=== PATIENT | male | born 1960 | race Caucasian/White ===

== ENCOUNTER → 2022-05-15 01:13 | Outpatient (CLI) | payer OTHER, SELFPAY ==
--- NOTE | 2022-05-15 | DI.RAD_ITS ---
Exam(s) XR FOOT RT COMPLETE EXAM: XR FOOT RT COMPLETE CLINICAL HISTORY: HX GOUT Z87.39 TECHNIQUE: COMPARISON: No exams were available for comparison FINDINGS: Three views were obtained. There is marked soft tissue swelling adjacent to the 1st MTP joint with p rominent periarticular erosions of the bones. Findings are consistent with known diagnosis of gout. There is also some loss of the cartilaginous joint space of the 1st MTP joint consistent with superi mposed degenerative change. No other significant abnormality seen. IMPRESSION: RADIATION DOSE DELIVERED: Total DLP
--- NOTE | 2022-05-15 10:23 | DI.RAD_ITS ---
Exam(s) XR KNEE LT 3V AP,LAT,JANAE EXAM: XR KNEE LT 3V AP,LAT,JANAE CLINICAL HISTORY: ARTHRITIS OF KNEE M17.10 TECHNIQUE: COMPARISON: No exams were available for comparison FINDINGS: Three views were obtained. There are fixation screws of the distal femoral metaphysis and proximal t ibial metaphysis. There is an apparent old ACR reconstruction. There is marked loss of the cartilag inous joint space of the medial tibiofemoral joint and there is probably significant narrowing of the cartilaginous joint space of the patellofemoral joint as well. There are very prominent marginal os teophytes of all 3 joints of the knee. IMPRESSION: Severe DJD, most marked involving medial tibiofemoral joint. RADIATION DOSE DELIVERED: Total DLP
--- NOTE | 2022-05-15 10:23 | DI.RAD_ITS ---
Exam(s) XR HIP RT COMPLETE AP PELVIS EXAM: XR HIP RT COMPLETE AP PELVIS CLINICAL HISTORY: ARTHRITIS OF RT HIP M16.11 TECHNIQUE: COMPARISON: No exams were available for comparison FINDINGS: Five views were obtained. There is severe loss of the cartilaginous joint space of the right hip sup eriorly. There is marked subchondral sclerosis and cyst formation of the femoral head and acetabulum . There are very prominent marginal osteophytes of the femoral head and acetabulum. IMPRESSION: severe DJD right hip. Moderate degenerative changes of the left hip are noted as well. RADIATION DOSE DELIVERED: Total DLP
--- NOTE | 2022-05-15 10:23 | DI.RAD_ITS ---
Exam(s) XR KNEE RT 3V AP,LAT,JANAE EXAM: XR KNEE RT 3V AP,LAT,JANAE CLINICAL HISTORY: ARTHRITIS OF KNEE M17.10 TECHNIQUE: COMPARISON: CR XR KNEE LT 3V AP,LAT,JANAE from 05/15/2022 FINDINGS: Three views were obtained. There is mild narrowing of the medial tibiofemoral cartilaginous joint sp clemente. There is a superior patellar enthesophyte. No other significant bony or soft tissue abnormalit y seen. IMPRESSION: RADIATION DOSE DELIVERED: Total DLP
== END ==
PROVIDERS: PCP Internal Medicine; Visit Provider Internal Medicine
DX: M25.562 Pain in left knee (principal); M17.12 Unilateral primary osteoarthritis, left knee; M25.561 Pain in right knee; M17.11 Unilateral primary osteoarthritis, right knee; M25.551 Pain in right hip; M16.11 Unilateral primary osteoarthritis, right hip; M79.671 Pain in right foot; M10.9 Gout, unspecified; M79.89 Other specified soft tissue disorders; M19.071 Primary osteoarthritis, right ankle and foot
CPT/HCPCS: 73562; 73502; 73630

== ENCOUNTER 2023-01-03 10:12 | Outpatient (CLI) | payer OTHER, SELFPAY ==
--- NOTE | 2023-01-03 10:00 | DI.RAD_ITS ---
Exam(s) XR PELVIS AP EXAM: XR PELVIS AP CLINICAL HISTORY: PRE OP BILAT BRANDAN. TECHNIQUE: 2D digital imaging was performed.One images were obtained. COMPARISON: CR XR HIP RT COMPLETE AP PELVIS from 05/15/2022 FINDINGS: BONES: No acute fracture is present. No bony destructive lesion is seen. JOINTS: No dislocation present. There are marked degenerative changes again seen at the right hip wit h loss of the joint space and bony hypertrophy of the acetabulum and femoral head. Subchondral cysts are seen in the femoral head. There are [id number] degenerative changes of the left hip with joint space narrowing and bony hypertrophy present. SOFT TISSUE: Surgical clips are seen inferior to the pelvis which may represent prior vasectomy. IMPRESSION: Marked osteoarthritis of the right hip. [id number] osteoarthritis of the left hip. DATA REPOSITORY: RADIATION DOSE DELIVERED:
== END 2023-01-03 10:13 | disposition home or self-care (01) ==
LOC: DIORS 10:12
PROVIDERS: PCP Internal Medicine; Referring Provider Internal Medicine; Visit Provider Physician Assistant
DX: M16.0 Bilateral primary osteoarthritis of hip (principal)
CPT/HCPCS: 72170

== ENCOUNTER 2023-01-10 01:20 | Outpatient (CLI) | payer OTHER, SELFPAY ==
[2023-01-10 11:05] LABS: HGB 14.3 g/dL (13.5-17.5); MCH 29.2 pg (27.0-33.0); MCHC 33.3 % (32.0-36.0); MCV 88 fL (80-95); MPV 9.3 fL (8.0-11.0); Platelet Count 222 10^3/uL (130-400); RBC 4.89 10^6/uL (4.36-5.78); RDW 12.9 % (11.8-14.1); RDW-SD 42.1 fL; WBC 5.22 10^3/uL (4.4-10.8)
[2023-01-10 11:17] LABS: BUN 26 mg/dL (7-18); CREATININE 1.1 mg/dL (0.70-1.30); Calcium 8.8 mg/dL (8.5-10.1); Chloride 107 mmol/L (98-107); Estimated GFR 76.85 (mL/min/1.73m2); Glucose 178 mg/dL (74-106); Potassium 4.1 mmol/L (3.5-5.1); Sodium 141 mmol/L (136-145)
== END 2023-01-10 01:21 | disposition home or self-care (01) ==
LOC: LBO 01:22
PROVIDERS: PCP Internal Medicine; Visit Provider Student in an Organized Health Care Education/Training Program
DX: M25.551 Pain in right hip (principal); M25.552 Pain in left hip; M16.0 Bilateral primary osteoarthritis of hip; Z01.818 Encounter for other preprocedural examination; Z01.812 Encounter for preprocedural laboratory examination
CPT/HCPCS: 36415; 80048; 85027; 86850; 86900; 86901

== ENCOUNTER 2023-01-15 05:55 | Day surgery (SDC) | payer OTHER, SELFPAY ==
[2023-01-15] VITALS (11 sets, daily range): BP systolic 75–147; BP diastolic 40–87; PULSE 46–82; RESP 16–18; TEMP 36–36.8; O2SAT 95–100; BMI 30.4
[2023-01-15] MEDS: Acetaminophen 500 MG TAB 1000 MG PO (06:42)
[2023-01-15] MEDS: Lactated Ringers 1,000 ML 80 ML IV (06:43)
[2023-01-15] MEDS: Celecoxib 200 MG CAP 400 MG PO (06:43)
--- NOTE | 2023-01-15 07:01 | W.ANESPRE ---
General Info Date of Service Date Performed: 01/15/23 Height: 5 ft 9 in Weight: 93.5 kg Body Mass Index (BMI): 30.4 Surgical Procedure: Operation Date: 01/15/23 08:00 Proposed Procedure Side Surgeon p Hip Total Hip Anterior Bilateral, ACTIS Bilateral Oseas Larsen MD Meds Allergies and Home Medications Allergies Allergy/AdvReac Type Severity Reaction Status Date / Time No Known Allergies Allergy Unverified 01/14/23 11:56 Home Medication Medication Instructions Recorded fluoxetine 20 mg capsule 20 mg PO DAILY 05/27/16 lisinopril 20 mg tablet 20 mg PO DAILY 05/27/16 omeprazole 20 mg tablet,delayed 20 mg PO DAILY 05/27/16 release simvastatin 40 mg tablet 40 mg PO HS 05/27/16 cholecalciferol (vitamin D3) 50 50 mcg PO DAILY 01/03/23 mcg (2,000 unit) capsule indomethacin 50 mg capsule 50 mg PO TID PRN 01/03/23 lactobacillus combination no.9 4 4,000 mmu cells PO DAILY 01/03/23 billion cell capsule (Adult 50 Plus Probiotic) sildenafil 100 mg tablet (Viagra) 100 mg PO DAILY PRN 01/03/23 Current Visit Medications: Current Medications Generic Name Dose Route Start Last Admin Trade Name Freq PRN Reason Stop Dose Admin Acetaminophen 1,000 mg 01/15/23 06:00 01/15/23 06:42 Acetaminophen 500 Mg Tab PO 01/15/23 16:00 1,000 mg PREOP JEFF Administration Celecoxib 400 mg 01/15/23 06:00 01/15/23 06:43 Celecoxib 200 Mg Cap PO 01/15/23 16:00 400 mg PREOP JEFF Administration Tranexamic Acid 1,000 mg/ 60 mls @ 360 mls/hr 01/15/23 06:00 Sodium Chloride IV 01/15/23 16:00 PREOP JEFF Ringer's Solution 1,000 mls @ 80 mls/hr 01/15/23 06:00 01/15/23 06:43 IV 01/26/23 23:59 80 mls/hr INFUSION JEFF Administration Cefazolin Sodium/Dextrose 2 gm in 50 mls @ 100 mls/hr 01/15/23 06:00 Ancef Duplex IVPB 01/15/23 23:59 PREOP JEFF IV Miscellaneous Supplies 1 each 01/15/23 06:00 Iv Access IV 01/26/23 23:59 DIRECTED JEFF Sodium Chloride 0 ml 01/15/23 06:00 Normal Saline Flush 10 Ml Syr IV 01/26/23 23:59 PRN PRN Sodium Chloride 0 ml 01/15/23 06:00 Normal Saline 10 Ml Vial IJ 01/26/23 23:59 DIRECTED PRN Sterile Water 0 ml 01/15/23 06:00 Water,Injection,Sterile 10 Ml Vial IJ 01/26/23 23:59 DIRECTED PRN y PFSH Active Problems Active Problems: Problem Status Onset Code 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 Osteoarthritis of left hip M16.12 Osteoarthritis of right hip M16.11 Medical History Medical History Depression GERD (gastroesophageal reflux disease) Gout Hypertension Surgical History Surgical History History of reconstruction of anterior cruciate ligament tear Left ~35 years ago Tobacco Smoking/Tobacco Use Status: Never Alcohol Alcohol Intake: current Alcohol intake frequency: a few times a week Substance Use Substance use: Occasionally Substance use type: marijuana Vital Signs and Lab Results Vital Signs Most Recent Vital Signs in EMR: Most Recent Vital Signs Temp Pulse Resp BP Pulse Ox 36.8 C 82 16 147/87 H 97 01/15/23 06:12 01/15/23 06:12 01/15/23 06:12 01/15/23 06:12 01/15/23 06:12 Lab Results Blood Type / Crossmatch: Patient ABO/Rh O Positive 01/10/23 Antibody Screen NEGATIVE 01/10/23 Complete Blood Count: White Blood Count 5.22 10^3/uL (4.4-10.8) 01/10/23 10:53 Red Blood Count 4.89 10^6/uL (4.36-5.78) 01/10/23 10:53 Hemoglobin 14.3 g/dL (13.5-17.5) 01/10/23 10:53 Hematocrit 43.0 % (40.0-50.0) 01/10/23 10:53 Platelet Count 222 10^3/uL (130-400) 01/10/23 10:53 Complete Metabolic Panel: Sodium 141 mmol/L (136-145) 01/10/23 10:53 Potassium 4.1 mmol/L (3.5-5.1) 01/10/23 10:53 Chloride 107 mmol/L (98-107) 01/10/23 10:53 Carbon Dioxide 25.0 mmol/L (21.0-32.0) 01/10/23 10:53 BUN 26 mg/dL (7-18) H 01/10/23 10:53 Creatinine 1.1 mg/dL (0.70-1.30) 01/10/23 10:53 Est GFR (CKD-EPI 2020) 76.85 (mL/min/1.73m2) 01/10/23 10:53 Calcium 8.8 mg/dL (8.5-10.1) 01/10/23 10:53 Glucose 178 mg/dL (74-106) H 01/10/23 10:53 Liver Function Panel: No Data to Display Coagulation Panel: No Data to Display Cardiac Panel: No Data to Display Arterial Blood Gas: No Data to Display Venous Blood Gas: No Data to Display Pancreas Panel: No Data to Display Thyroid Panel: No Data to Display Infectious Disease: No Data to Display Blood Cultures: No Data to Display Toxicology Panel: No Data to Display Imaging and Studies Imaging and Studies Study information below may be from another EMR and interpreted by another provider. Please see original notes in EMR for more complete details. Stress Test Summary: Impressions: Normal study after maximal exercise. Summary: 1. Stress ECG conclusions: The stress ECG is negative. Wise treadmill score: 11. This score predicts a low risk of cardiac events. 2. Impressions: Normal study after maximal exercise. 06/04/16 Anesthesia Assessment and Plan Anesthesia History Personal History: No History of Anesthesia Complications Family History: No Family History of Anesthesia Complications Exercise Tolerance Exercise Tolerance: Metabolic Equivalents>4 Pertinent Negatives Pertinent Negatives: No Symptoms of GERD (well-controlled with meds), No Major Cardiovascular Symptoms or Complaints, No Major Pulmonary Symptoms or Complaints and No History of CVA/TIA Cardiac & Pulmonary Exam Cardiac Exam: Normal S1/S2 Heart Sounds Pulmonary Exam: Clear Bilateral Breath Sounds Implantable Cardiac Device Does patient have a Pacemaker or an ICD?: No Airway Exam Known Difficult Airway: No Mallampati Class: 3 Mouth Opening: Normal (> 3cm) Thyromental Distance: Greater than 3 cm Facial Hair: Full [place] Neck Range of Motion: Full ROM Neck Circumference: Normal Teeth Condition: Normal Dentition ASA Classification ASA Score: ASA 2 Emergency Case?: No NPO Status NPO Status: NPO Clears >2 hours, Solids >8 hours Anesthesia Plan Resuscitation Status: Full Code Anesthesia Technique: Spinal Anesthesia Airway Planned: Natural Airway Monitors Used: Standard Monitors
--- NOTE | 2023-01-15 07:26 | W.PM.DSUDISC ---
Date of service: 01/15/23 Time of Service: 07:26 Discharge Plan Disposition Patient Disposition: Home Condition: Good Discharge Details Reason For Visit: B/L THR Attending Provider: Oseas Larsen Primary Care Provider: Asif Parson Home Meds and New Rx's Prescriptions: New celecoxib 200 mg capsule 200 mg PO BID Qty: 60 0RF aspirin 81 mg tablet,delayed release (DR/EC) 81 mg PO BID Qty: 60 0RF acetaminophen 500 mg tablet 1,000 mg PO TID Qty: 90 3RF dexamethasone 4 mg tablet 4 mg PO DAILY Qty: 2 0RF oxycodone 5 mg tablet 5 mg PO Q4H MDD 6 tabs PRN (Reason: pain) Qty: 20 0RF Continued sildenafil [Viagra] 100 mg tablet 100 mg PO DAILY PRN Rx Instructions: administer 30 minutes to 4 hours before activity Adult 50 Plus Probiotic 4 billion cell capsule 4,000 mmu cells PO DAILY Rx Instructions: administer with a meal cholecalciferol (vitamin D3) 50 mcg (2,000 unit) capsule 50 mcg PO DAILY lisinopril 20 MG tablet 20 mg PO DAILY simvastatin 40 MG tablet 40 mg PO HS fluoxetine 20 MG capsule 20 mg PO DAILY omeprazole 20 MG tablet,delayed release (DR/EC) 20 mg PO DAILY Discontinued indomethacin 50 mg capsule 50 mg PO TID PRN Rx Instructions: administer with food or milk Discharge Instructions Additional Instructions: Total Hip Discharge Instructions Activity: The most important activity is to walk. You should try to take short walks a few times a day. You have no restrictions on movement or positioning, but do not try to force what you do. You will find some stiffness and weakness with hip flexion (lifting your knee). Do not try to strengthen this too early, continue to practice walking and stairs and this will come. - Outpatient physical therapy can be helpful to help return you to a normal gait and improve your flexibility and strength. This can start around 2 weeks. For some patients, it?s not necessary. Usually this is determined at the time of discharge or at the first post-operative visit. - You should wear the FIDEL hose on both legs for 2 weeks. Dressing: Keep the surgical dressing in place for at least one week. After the first week it may be removed and replace with light gauze and tape or nothing. It may get wet after 3 days but avoid soaking the dressing. If it gets wet, just lightly pat dry. It is important to always keep some gauze between skin folds, especially when you are sitting. Spend some time with the wound exposed when you are lying flat as the incision does wrinkle onto itself. Medications: - You should take Tylenol and an anti-inflammatory Celebrex as your primary pain control medications. If the Celebrex is too expensive or not covered, please call the office for another alternative (Advil/Ibuprofen or Naproxen/Aleve). - You have been prescribed a stronger pain medication Oxycodone for breakthrough pain, take as needed as prescribed. - You will also continue your stomach acid reduction agent omeprazole to help reduce stomach acid and reflux. - You have also been prescribed Decadron to help with post-operative nausea and pain. You will take this for two days starting tomorrow. - You will be taking Aspirin 81mg twice a day for DVT prevention unless instructed otherwise. - If you have constipation you should take Colace or Miralax (both [id number]). It takes most people 3-4 days to have a bowel movement. Follow-up: 2 weeks If you have any acute concerns or questions, please do not hesitate to contact the office at [phone]. You may contact Dr. Larsen with any questions after hours through the hospital at [phone] or on his cell phone at [phone]. Referrals: Oseas Larsen MD [ [facility] STAFF PHYSICIAN] - Equipment/Supplies: Walker Activity:: Activity as Tolerated Shower/Bathe:: 72 hours Diet:: As Tolerated
[2023-01-15] MEDS: ceFAZolin 2 GM/50 ML BAG IVPB (07:38)
[2023-01-15] MEDS: Tranexamic Acid 1,000 MG/10 ML VIAL 1000 MG (08:55)
--- NOTE | 2023-01-15 08:55 | DI.RAD_ITS ---
Exam(s) XR HIP RT IN OR EXAM: XR HIP RT IN OR CLINICAL HISTORY: total hip TECHNIQUE: 2D and realtime digital imaging was performed. CONTRAST MATERIAL: Refer to procedure report. COMPARISON: CR XR PELVIS AP from 01/03/2023 FINDINGS: Fluoroscopy was provided for Dr. Larsen during the performance of a right total hip replacement. Please refer to the procedure report for complete details. Ka,r=4.37 mGy IMPRESSION: RADIATION DOSE DELIVERED:
--- NOTE | 2023-01-15 10:05 | DI.RAD_ITS ---
Exam(s) XR HIP LT IN OR EXAM: XR HIP LT IN OR CLINICAL HISTORY: total hip TECHNIQUE: 2D and realtime digital imaging was performed. CONTRAST MATERIAL: Refer to procedure report. COMPARISON: CR XR PELVIS AP from 01/03/2023 FINDINGS: Fluoroscopy was provided for Dr. Larsen during the performance of a left total hip replacement. P lease refer to the procedure report for complete details. Ka,r=5.41 mGy IMPRESSION: RADIATION DOSE DELIVERED:
[2023-01-15] MEDS: ePHEDrine 25 MG/5 ML Syringe IVP (10:52)
--- NOTE | 2023-01-15 11:29 | ROE_ITS ---
Date of service: 01/15/23 Time of Service: 10:20 Operative Note Operative Note DATE OF PROCEDURE: 04/26/20 PRE-OP DIAGNOSIS: Bilateral Hip Osteoarthritis POST-OP DIAGNOSIS: same PROCEDURE: Bilateral Anterior Total Hip Arthroplasty with Intraoperative Navigation SURGEON: Oseas Larsen ANESTHESIA TYPE: Spinal Refer to Anesthesia Record ESTIMATED BLOOD LOSS: 600 PATHOLOGY: none sent COMPLICATIONS: None Patient was transported to: PACU Patient's condition: stable Implants: RIGHT: 1. Depuy Lytle Acetabular Component, 56mm 2. Depuy Acetabular Liner, [id number] 3. Depuy Actis Standard Femoral Stem, Size 6 4. Depuy Altrx Ceramic Femoral Head, Size 36+1.5mm LEFT: 1. Depuy Lytle Acetabular Component, 58mm 2. Depuy Acetabular Liner, [id number] 3. Depuy Actis Standard Femoral Stem, Size 6 4. Depuy Altrx Ceramic Femoral Head, Size 36+1.5mm Indications: I have seen Peter in clinic for symptoms of hip arthritis, confirmed with radiographic findings. He has exhausted nonoperative methods and was having significant limitations in daily function and desired better function and less pain. I discussed the technical details of a hip replacement. I explained the risks of the procedure to include, but not limited to, bleeding, infection, pain, stiffness, fracture, damage to nerves and vessels, damage to muscles and tendons, loosening, instability, leg length inequality, need for repeat procedure, blood clot and cardiopulmonary demise. Despite these risks, Peter elected to proceed. Findings: There was significant signs of arthritis throughout both hips. Large osteophytes are present in both but significantly so on the right side with notable deformity of the femoral head/neck junction obstructing normal anatomy view. Procedure Description: Peter was greeted in the preoperative holding area where the correct side was identified and marked. The consent was reviewed with the patient and signed. The history and physical was updated. All questions were answered. Peter was taken back to the operating room. A spinal anesthestic was then administered. The patient was placed into the supine position on the HANA table. Both feet were wrapped with Webrill cotton wrap along with Coban. RIGHT Side The feet were placed in specialized boots for the HANA table, well seated within the boot and secured. SCDs were applied. The patient was then slid down onto a peroneal post. A preoperative AP hip was obtained to serve as a reference for determining leg lengths. Prophylactic antibiotics in the form of Cefazolin were administered. 1g of Tranxemic Acid was given intravenously within 30 minutes of incision. The right leg was then prepped with Chloraprep and draped in a standard fashion. A second prep with Chloraprep was performed prior to placement of a shower-curtain type drape with Iodine impregnated skin protection. A timeout to confirm correct identity, side and site, procedure, allergies, anesthesia, and medical concerns was performed. An obliquely oriented incision was made starting lateral to the ASIS and running distal over the Tensor Fascia Judith (TFL) muscle belly toward the fibular head, approximately 10cm. The skin and soft tissue was dissected sharply, through Annia?s fascia, and to the fascia of the TFL. With the fascia and superior border of the IT band identified, the fascia was incised with a new knife just above any perforators from the IT band. The TFL muscle belly was bluntly dissected away from the fascia and moved laterally. The fat between TFL and rectus was identified to ensure the dissection was not within the TFL. Blunt dissection created space between abductors and the capsule and retractor was placed over the lateral femoral neck. The fibers of the rectus femoris tendon were identified and these were freed from the anterior capsule. A second cobra retractor was placed around the medial femoral neck. The TFL was further retracted laterally to show the deep fascia. Careful dissection through this layer identified three main crossing vessels of the lateral femoral circumflex. These were cauterized in multiple locations and then cut without any noticeable bleeding. The TFL was further released bluntly from the deep fascia to expose anterior hip capsule and fat The Vaughn orthopaedic retractor was then placed beneath the TFL and against sartorius and medial soft tissues to protect and retract the soft tissues. A T-capsulotomy was then performed starting at the superior lateral acetabulum and moving distally to the intertrochanteric ridge. These capsular flaps were tagged with a No. 1 Ethibond and elevated from within. Release of the capsule flaps was challenging given the deformity of the femoral head neck junction. There is large osteophytes throughout. A rongeur was utilized to remove these osteophytes to expose the normal anatomy of the proximal femur. A neck osteotomy was performed using an oscillating saw based on preoperative templates. This cut started in the shoulder and of the lateral neck and exited medially. The saw was at all times directed medially to avoid injury to the greater trochanter. Gentle traction was applied to the leg and the osteotomy opened. The femoral head was removed with a corkscrew, making sure to protect the TFL on its exit. This was measured on the back table to determing the starting reamer size. Portions of the rectus obscuring visualization were minimally elevated off the superior acetabulum. An anterior retractor was placed over the anterior wall between capsule and labrum and attached to the Gripper retraction system. A posterior retractor was placed similarly. This provided excellent visualization. The contents of the cotyloid fossa were removed with electrocautery and the labrum was removed with a knife. There was a notable floor osteophyte. There was significant chondromalacia of the superior acetabulum with a deep floor osteophyte. Acetabular reaming began with a 52mm reamer. This first reaming was directed anterior to posterior and medial to get down to the true floor. This was inspected and reamed until the true floor was reached. The anterior retractor was then released and entry and exit was provided by traction on the capsular flaps. I then reamed sequentially up to a 56mm reamer where good fit was obtained. The larger reamers were oriented based on anatomical reference of the anterior and lateral uriarte to ensure proper abduction and anteversion. Positioning and size was confirmed with the fluoroscopy. A 56mm Depuy Lytle acetabular component was selected. The acetabulum was reamed around the periphery with the selected acetabular size to prevent a rim fit. The deep tissues were irrigated. The acetabular component was then impacted in a position of about 40degrees of abduction and 15-20 degrees of anteversion, using the patient?s anatomy as the ultimate landmark. Fluoroscopy was used to confirm this. There was excellent bessemer converter operator of the acetabular component and the inserting handle was removed. The acetabular liner, Depuy [id number] polyethylene liner, was inserted and lined up with the tines of the acetabular component. There was no soft tissue interposition. The liner was then impacted into position and confirmed to be well-seated. A portion of the reggie-articular cocktail was then injected around the acetabulum into the capsule and periosteum. This cocktail consisted of 123mg of Ropivacaine, 0.25mg of Epinephrine, 0.04mg of Clonidine, and 15mg of Ketorolac, diluted to 50cc. Traction was released from the femur. The leg was rotated to 120 degrees. Any remaining medial capsule was released until the lesser trochanter was easily palpable. A Beal retractor was placed medially. The lateral capsule was further released into the shoulder to allow access to the greater trochanter. A Beal retractor was placed over the greater trochanter which allowed the trochanter to flip in front of the capsule for excellent exposure. The leg was brought down into maximal extension and 20 degrees of adduction while ensuring there was no impingement on the acetabulum. Any remnant capsule within the trochanter was released. Piriformis and obturator externis were identified and protected. There was excellent access to the proximal femur. The lateral neck remnant was removed with a rongeur. A blunt canal probe was used to identify the canal and trajectory for later broaching. A box osteotome initiated the broach course. A small curved rasp and a curved curette were used to work laterally. Broaching then began with a starter Actis broach. This was inserted manually around the trochanter and into the canal before mallet blows. The broach was seated to the neck cut level based on the neck cut and the preoperative template. Sequential broaching was continued with the RotaPostse pneumatic broaching device until a tight fit was obtained with good rotational control of the femur. A trial standard neck was inserted along with a +5 trial head. The leg was brought out of extension and adduction and then reduced with traction and internal rotation. The leg was stable anteriorly in a position of 30 degrees of extension and 90 degrees of external rotation. Fluoroscopy was used to ensure there was no fracture and the stem was seated well. Leg lengths were checked with an AP pelvis and pelvic reference points. [employer] navigation system was used to confirm appropriate positioning and leg length and offset. Once content with the desired offset and leg lengths, the leg was brought back into extension, external rotation and adduction. A large posterior osteophyte was removed from the acetabular surface. The periosteum and surrounding tissue was injected with remaining portion of the reggie-articular cocktail. The proximal femur was irrigated as well as the deep tissues. The NeoGuide Systemsis standard stem, size 6, was then manually inserted into the proximal femur making sure to control rotation. It was then malleted into position with light blows, giving breaks to allow bone expansion and decrease risk of fracture. The selected Depuy Altrx Ceramic Head, size 36+1.5mm, was then placed onto the clean and dry trunnion and secured with impaction onto the tapered fit. The leg was brought back out of extension and adduction and reduced with traction and internal rotation. Stability was confirmed with no shuck at 90 degrees of external rotation and 30 degrees of extension. No impingement through range of motion arc. Final x-ray images were obtained with fluoroscopy to confirm adequate positioning and no intraoperative fracture. The deep tissues were thoroughly irrigated with Surgiphor betadine solution. The second dose of TXA 1g was administered intravenously. The capsule was then reapproximated with the previously placed Ethibond sutures and #1 Vicryl. The TFL fascia was finally closed with a No. 2 Stratafix, barbed suture. Deep t issues were then reapproximated with 0 Vicryl and a running 2-0 Vicryl. The skin was closed with a running 4-0 Monocryl in a subcuticular fashion. This was reinforced with skin glue. A Mepilex silver dressing was applied. LEFT Side Keeping the back table sterile, the drapes were removed, light handles changed, and fluoroscopy switched rooms sides. Once again, a AP hip was obtained to serve as a reference for determining leg lengths. The left leg was then prepped with Chloraprep and draped in a standard fashion. A second prep with Chloraprep was performed prior to placement of a shower-curtain type drape with Iodine impregnated skin protection. A timeout was once again performed to ensure that there were no issues to proceed. An obliquely oriented incision was made starting lateral to the ASIS and running distal over the Tensor Fascia Judith (TFL) muscle belly toward the fibular head, approximately 10cm. The skin and soft tissue was dissected sharply, through Annia?s fascia, and to the fascia of the TFL. With the fascia and superior border of the IT band identified, the fascia was incised with a new knife just above any perforators from the IT band. The TFL muscle belly was bluntly dissected away from the fascia and moved laterally. The fat between TFL and rectus was identified to ensure the dissection was not within the TFL. Blunt dissection created space between abductors and the capsule and retractor was placed over the lateral femoral neck. The fibers of the rectus femoris tendon were identified and these were freed from the anterior capsule. A second cobra retractor was placed around the medial femoral neck. The TFL was further retracted laterally to show the deep fascia. Careful dissection through this layer identified three main crossing vessels of the lateral femoral circumflex. These were cauterized in multiple locations and then cut without any noticeable bleeding. The TFL was further released bluntly from the deep fascia to expose anterior hip capsule and fat The Vaughn orthopaedic retractor was then placed beneath the TFL and against sartorius and medial soft tissues to protect and retract the soft tissues. A T-capsulotomy was then performed starting at the superior lateral acetabulum and moving distally to the intertrochanteric ridge. These capsular flaps were tagged with a No. 1 Ethibond and elevated from within. The capsular flaps were released to the shoulder of the lateral neck and to the lesser trochanter to give excellent visualization of the proximal femur. A neck osteotomy was performed using an oscillating saw based on preoperative templates. This cut started in the shoulder and of the lateral neck and exited medially. The saw was at all times directed medially to avoid injury to the greater trochanter. Gentle traction was applied to the leg and the osteotomy opened. The femoral head was removed with a corkscrew, making sure to protect the TFL on its exit. This was measured on the back table to determing the starting reamer size. Portions of the rectus obscuring visualization were minimally elevated off the superior acetabulum. An anterior retractor was placed over the anterior wall between capsule and labrum and attached to the Gripper retraction system. A posterior retractor was placed similarly. This provided excellent visualization. The contents of the cotyloid fossa were removed with electrocautery and the labrum was removed with a knife. There was a notable floor osteophyte. There was significant chondromalacia of the superior acetabulum. Acetabular reaming began with a 54mm reamer. This first reaming was directed anterior to posterior and medial to get down to the true floor. This was inspected and reamed until the true floor was reached. The anterior retractor was then released and entry and exit was provided by traction on the capsular flaps. I then reamed sequentially up to a 58mm reamer where good fit was obtained. The larger reamers were oriented based on anatomical reference of the anterior and lateral uriarte to ensure proper abduction and anteversion. Positioning and size was confirmed with the fluoroscopy. A 58mm Depuy Lytle acetabular component was selected. The acetabulum was reamed around the periphery with the selected acetabular size to prevent a rim fit. The deep tissues were irrigated. The acetabular component was then impacted in a position of about 40 degrees of abduction and 15-20 degrees of anteversion, using the patient?s anatomy as the ultimate landmark. Fluoroscopy was used during this. There was excellent bessemer converter operator of the acetabular component and the inserting handle was removed. On secondary evaluation, it did appear that the acetabular component was more flat, approximately 35 degrees. However, it was well seated and thus left as it is in a slightly more horizontal position. The acetabular liner, Depuy [id number] polyethylene liner, was inserted and lined up with the tines of the acetabular component. There was no soft tissue interposition. The liner was then impacted into position and confirmed to be well-seated. A portion of the reggie-articular cocktail was then injected around the acetabulum into the capsule and periosteum. This cocktail consisted of 123mg of Ropivacaine, 0.25mg of Epinephrine, 0.04mg of Clonidine, and 15mg of Ketorolac, diluted to 50cc. Traction was released from the femur. The leg was rotated to 120 degrees. Any remaining medial capsule was released until the lesser trochanter was easily palpable. A Beal retractor was placed medially. The lateral capsule was further released into the shoulder to allow access to the greater trochanter. A Beal retractor was placed over the greater trochanter which allowed the trochanter to flip in front of the capsule for excellent exposure. The leg was brought down into maximal extension and 20 degrees of adduction while ensuring there was no impingement on the acetabulum. Any remnant capsule within the trochanter was released. Piriformis and obturator externis were identified and protected. There was excellent access to the proximal femur. The lateral neck remnant was removed with a rongeur. A blunt canal probe was used to identify the canal and trajectory for later broaching. A box osteotome initiated the broach course. A small curved rasp and a curved curette were used to work laterally. Broaching then began with a starter Actis broach. This was inserted manually around the trochanter and into the canal before mallet blows. The broach was seated to the neck cut level based on the neck cut and the preoperative template. Sequential broaching was continued with the RotaPostse pneumatic broaching device until a tight fit was obtained with good rotational control of the femur. A trial standard neck was inserted along with a +1.5 trial head. The leg was brought out of extension and adduction and then reduced with traction and internal rotation. The leg was stable anteriorly in a position of 30 degrees of extension and 90 degrees of external rotation. Fluoroscopy was used to ensure there was no fracture and the stem was seated well. Leg lengths were checked with an AP pelvis and pelvic reference points. [employer] navigation system was used to confirm appropriate positioning and leg length and offset. Once content with the desired offset and leg lengths, the leg was brought back into extension, external rotation and adduction. The periosteum and surrounding tissue was injected with remaining portion of the reggie-articular cocktail. The proximal femur was irrigated as well as the deep tissues. The Depuy Actis standard collared stem, size 6, was then manually inserted into the proximal femur making sure to control rotation. It was then malleted into position with light blows, giving breaks to allow bone expansion and decrease risk of fracture. The selected Depuy Altrx Ceramic Head, size 36+1.5mm, was then placed onto the clean and dry trunnion and secured with impaction onto the tapered fit. The leg was brought back out of extension and adduction and reduced with traction and internal rotation. Stability was confirmed with no shuck at 90 degrees of external rotation and 30 degrees of extension. No impingement through range of motion arc. Final x-ray images were obtained with fluoroscopy to confirm adequate positioning and no intraoperative fracture. The deep tissues were thoroughly irrigated with Surgiphor betadine solution. The capsule was then reapproximated with the previously placed Ethibond sutures and #1 Vicryl. The TFL fascia was finally closed with a No. 2 Stratafix, barbed suture. Deep tissues were then reapproximated with 0 Vicryl and a running 2-0 Vicryl. The skin was closed with a running 4-0 Monocryl in a subcuticular fashion. This was reinforced with skin glue. A Mepilex silver dressing was applied. At the end of the case, all counts were correct. Peter was transferred to the hospital bed without difficulty and suffering no apparent complication. Peter has a good prognosis. Physical therapy will start today and without restrictions, weight-bearing as tolerated. Aspirin 81mg BID will be used for DVT prophylaxis.
--- NOTE | 2023-01-15 12:29 | W.ANESPOSTOP ---
Postoperative Evaluation Date, Time and Location Date Performed: 01/15/23 Time Performed: 12:31 Patient Location: Day Surgery Unit Vital Signs Most Recent Imported Vital Signs: Most Recent Vital Signs Temp Pulse Resp BP Pulse Ox 36.4 C L 66 16 127/76 99 01/15/23 12:10 01/15/23 12:10 01/15/23 12:10 01/15/23 12:10 01/15/23 12:10 Pain Score Most Recent Pain Score: Most Recent Pain Score Pain Level 0 01/15/23 12:10 Assessment Mental Status: Awake (Alert & Oriented to Patient Baseline) Airway and Respiratory Function: Patent airway with normal (patient baseline) respiratory exam Cardiovascular Function: Hemodynamically Stable Hydration Status: Adequately Hydrated Nausea & Vomiting: No Nausea or Vomiting Pain: Pt. Denies Any Pain Peripheral Nerve Block: Patient did not receive a nerve block
--- NOTE | 2023-01-15 12:39 | PT.INIE ---
PT Notes Visit Reasons: B/L THR Physical Therapy Day Surgery Initial Evaluation Date: 01/15/2023 Referring Doctor: TAVO Summers PT Orders: PT CONSULT: S/P Ortho Surgery Precautions: WBAT on BLE with AD. Patient Profile/Admitting Diagnosis: Peter is a 62-year-old male with degenerative joint disease of both hips and is status post bilateral anterior total hip arthroplasty on postoperative day 0. PMHX: Medical History?(Updated 01/03/23 @ 10:46 by Graciela Hudson) Depression GERD (gastroesophageal reflux disease) Gout Hypertension Surgical History?(Updated 01/03/23 @ 10:45 by Graciela Hudson) History of reconstruction of anterior cruciate ligament tear Left ~35 years ago Social History/Home Situation: Lives with in a private home with 12 steps to enter with rails on both sides. Independent with all aspects of ADLs prior to surgery but has had worsening difficulty due to osteoarthritis in B hips. Equipment Owned/DME: FWW Subjective: Reports minimal to moderate pain in both hips with the left more affected than the right with movement and weight bearing. Denies headache and chest pain. Reported mild lightheadedness that decreased at end of ambulation activity. Objective: General Observation: Mepilex Ag over surgical incision. TEDs to B legs. In NAD. Mental Status: Alert and oriented x4 Pain: 4?5/10 in bilateral hips with movement and weight ROM: Right Lower Extremity: Hip flexion WFL. Hip abduction WFL. Knee flexion WFL. Ankle dorsiflexion WFL. Ankle plantarflexion WFL. Left Lower Extremity: Hip flexion WFL. Hip abduction WFL. Knee flexion WFL. Ankle dorsiflexion WFL. Ankle plantarflexion WFL. Strength: Right Lower Extremity: Hip flexors 5/5. Hip abductors 5/5. Knee flexors 5/5. Knee extensors 5/5. Ankle dorsiflexors 5/5. Ankle plantarflexors 5/5. Left Lower Extremity:Hip flexors 5/5. Hip abductors 5/5. Knee flexors 5/5. Knee extensors 5/5. Ankle dorsiflexors 5/5. Ankle plantarflexors 5/5. Sensation: Intact as tompain and light touch in the Bed Mobility/Transfers: Supine to sit stand by assist Sit to stand guard assist with Stand to sit stand by assist Bed to chair stand by assist Gait: Tolerated 150 feet using front wheeled walker with standby assist, step through gait pattern. No LOB. NO SOB. Mild lightheadedness resolved with ambulation activity. Balance: Static Sitting: Normal Dynamic Sitting: Normal Static Standing: Fair Dynamic Standing: Fair Special Tests: Mobility Limitations Standardized Measure [facility] AM-PAC 6 clicks Basic Mobility Inpatient Short Form: Raw Score: 24 CMS Score: 0% deficit Informed Consent/Education: Patient instructed in purpose of PT consult. Packet containing BRANDAN exercise protocol has been given to patient. Education and training on initial set of exercises that can be done at home have been completed with patient. NEURO RE-ED: Facilitated muscle reactivation and recruitment of B LE S/P R BRANDAN to ensure safe performance of bed mobility, transfers, and ambulation task performance using FWW. Instructed patient with correct performance the following HEP: Exercises - Supine Gluteal Sets - 1 x daily - 7 x weekly - 1 sets - 10 reps - 5 hold - Supine Ankle Pumps - 1 x daily - 7 x weekly - 1 sets - 10 reps - 5 hold - Supine Heel Slides - 1 x daily - 7 x weekly - 1 sets - 10 reps - 5 hold - Seated March - 1 x daily - 7 x weekly - 1 sets - 10 reps - 5 hold - Seated Long Arc Quad - 1 x daily - 7 x weekly - 1 sets - 10 reps - 5 hold Access Code: [email or web address] URL: [email or web address] Date: 01/15/2023 Prepared by: Sylvia Pereyra Assessment: Patient requires the use of a front wheeled walker to maximize independence and reduce fall risk. Patient presents with clinical signs and symptoms consistent with current/admitting diagnoses that have resulted to mobility limitations, gait instability, generalized weakness, and impairment of motor control as demonstrated by the following impairment level findings: 1. Decreased strength to B hip major muscle groups 2. Impaired standing balance Impairments are contributing to the following functional limitations: 1. Inability to safely ambulate without assistive device 2. Increase completion time for mobility ADL performance 3. Increased fall risk Patient is assessed as a [id number] moderate complexity based on the following: History: 62-year-old male with impairment level findings, functional limitations, and past medical history as indicated above Examination: Demonstrable impairment in strength, balance, and mobility level with underlying impairments and functional limitations as documented above Presentation: Evolving Decision Makin moderate complexity Goals: N/A. PT evaluation and 1-2 treatment sessions only for functional mobility training using recommended AD and for HEP instruction. Plan of Care/Treatment Plan: N/A. PT evaluation and 1-2 treatment session only for functional mobility training using recommended AD and for HEP instruction. DISCHARGE RECOMMENDATIONS: Home when medically cleared by orthopedic surgeon. Recommend outpatient PT services in order to optimize functional mobility outcomes and facilitate return to independent community ambulation without an assistive device. TREATMENT CODE/TIME: 9716 2 x 20 minutes, 9753 0 x 21 minutes beginning at 12:45 PM. Thank you for the opportunity to participate in the care of this patient. Sylvia Pereyra PT, DPT, CLT [facility] [place], [place]
== END 2023-01-15 13:52 | disposition home or self-care (01) ==
PROVIDERS: PCP Internal Medicine; Visit Provider Student in an Organized Health Care Education/Training Program
PROC: 0SR90JZ Replacement of Right Hip Joint with Synthetic Substitute, Open Approach (ICD-10-PCS; CPT 27130; principal; 2023-01-15 07:30)
DX: M16.0 Bilateral primary osteoarthritis of hip (principal)
CPT/HCPCS: 27130; 20985; 97112; 97162; 73501; J0690; J1100; J2250; J2405

== ENCOUNTER 2023-01-31 11:01 | Outpatient (CLI) | payer OTHER, SELFPAY ==
--- NOTE | 2023-01-31 10:15 | DI.RAD_ITS ---
Exam(s) XR HIP PELVIS ADULT BL EXAM: XR HIP PELVIS ADULT BL CLINICAL HISTORY: 1ST POST OP BILAT BRANDAN. TECHNIQUE: 2D digital imaging was performed. COMPARISON: CR XR PELVIS AP from 01/03/2023 FINDINGS: 3 views There is satisfactory appearance-alignment of the components of bilateral hip prostheses which for pl aced on 01/15/2023. No fractures nor loosening evident. IMPRESSION: Stable satisfactory appearance of the bilateral recently placed hip prostheses. DATA REPOSITORY: RADIATION DOSE DELIVERED:
== END 2023-01-31 11:02 | disposition home or self-care (01) ==
LOC: DIORS 11:01
PROVIDERS: PCP Internal Medicine; Referring Provider Internal Medicine; Visit Provider Student in an Organized Health Care Education/Training Program
DX: Z96.643 Presence of artificial hip joint, bilateral (principal); Z48.89 Encounter for other specified surgical aftercare
CPT/HCPCS: 73521

== ENCOUNTER 2023-04-11 11:52 | Outpatient (CLI) | payer OTHER, SELFPAY ==
--- NOTE | 2023-04-11 11:00 | DI.RAD_ITS ---
Exam(s) XR STANDING ALIGNMENT EXAM: XR STANDING ALIGNMENT CLINICAL HISTORY: left knee DJD. TECHNIQUE: 2D digital imaging was performed. COMPARISON: CR XR HIP PELVIS ADULT BL from 01/31/2023 FINDINGS: 3 views There are bilateral hip prostheses again noted which appears satisfactory. There are screws in the distal diaphysis of the left femur and metaphysis of the proximal left tibia. There is [id number] narrowing of the medial compartment of the left knee. Preserved height of th e lateral compartment. In the opposite-right knee there is mild narrowing of the medial compartment and there is a 4 x 3 mil limeter osteophytic density off the inner aspect of this compartment in the region of the MCL. The l ateral compartment the right knee appears unremarkable. Both ankles appear unremarkable. Talar dome is unremarkable. No osseous lesions. IMPRESSION: Advanced narrowing of the medial compartment of the left knee. Lesser narrowing of the medial compar tment of the right knee. Osteophytic density noted at the medial aspect of the right knee, as descri bed above. Bilateral hip prostheses again noted. DATA REPOSITORY: RADIATION DOSE DELIVERED:
--- NOTE | 2023-04-11 11:00 | DI.RAD_ITS ---
Exam(s) XR KNEE LT 1V EXAM: XR KNEE LT 1V CLINICAL HISTORY: left knee DJD. TECHNIQUE: 2D digital imaging was performed. COMPARISON: CR XR KNEE RT 3V AP,LAT,JANAE from 05/15/2022 FINDINGS: Single lateral view. There is [id number] narrowing of the medial compartment. Single screw is noted in the distal femor al diaphysis and additional screw noted in the proximal tibial metaphysis. Moderate degenerative changes evident in the patellofemoral compartment. Posteriorly there is a calc ific density measuring 2 x 1.5 cm. Probably loose body in Cuellar's cyst. IMPRESSION: Advanced narrowing of the medial compartment. Other findings as above. DATA REPOSITORY: RADIATION DOSE DELIVERED:
== END 2023-04-11 11:53 | disposition home or self-care (01) ==
LOC: DIORS 11:54
PROVIDERS: PCP Internal Medicine; Visit Provider Physician Assistant
DX: M12.562 Traumatic arthropathy, left knee (principal); Z47.1 Aftercare following joint replacement surgery
CPT/HCPCS: 73560; 77073

== ENCOUNTER 2023-05-01 03:55 | Outpatient (CLI) | payer OTHER, SELFPAY ==
[2023-05-01 09:26] LABS: HCT 45.4 % (40.0-50.0); HGB 15.1 g/dL (13.5-17.5); MCH 29.2 pg (27.0-33.0); MCHC 33.3 % (32.0-36.0); MCV 88 fL (80-95); MPV 9.5 fL (8.0-11.0); Platelet Count 234 10^3/uL (130-400); RBC 5.17 10^6/uL (4.36-5.78); RDW 12.7 % (11.8-14.1); RDW-SD 40.9 fL; WBC 6.36 10^3/uL (4.4-10.8)
[2023-05-01 09:33] LABS: Anion Gap 9.9 mmol/L (3-11); BUN 21 mg/dL (7-18); CO2 27.1 mmol/L (21.0-32.0); Calcium 9.1 mg/dL (8.5-10.1); Chloride 103 mmol/L (98-107); Estimated GFR 86.16 (mL/min/1.73m2); Glucose 112 mg/dL (74-106); Potassium 4.2 mmol/L (3.5-5.1); Sodium 140 mmol/L (136-145)
== END 2023-05-01 03:56 | disposition home or self-care (01) ==
LOC: LBO 03:55
PROVIDERS: PCP Internal Medicine; Visit Provider Student in an Organized Health Care Education/Training Program
DX: M25.562 Pain in left knee (principal); M12.562 Traumatic arthropathy, left knee; Z01.818 Encounter for other preprocedural examination; Z01.812 Encounter for preprocedural laboratory examination
CPT/HCPCS: 36415; 80048; 85027

== ENCOUNTER 2023-05-06 07:15 | Day surgery (SDC) | payer OTHER, SELFPAY ==
[2023-05-06] VITALS (12 sets, daily range): BP systolic 126–167; BP diastolic 55–95; PULSE 65–97; RESP 14–19; TEMP 36.3–36.7; O2SAT 95–98; BMI 29.5
--- NOTE | 2023-05-06 06:26 | W.ANESPRE ---
General Info Date of Service Date Performed: 05/06/23 Height: 5 ft 9 in Weight: 90.718 kg Body Mass Index (BMI): 29.5 Surgical Procedure: Operation Date: 05/06/23 09:25 Proposed Procedure Side Surgeon p Knee Total Arthroplasty w/OrthAlign, cementless CR Left Oseas Larsen MD Meds Allergies and Home Medications Allergies Allergy/AdvReac Type Severity Reaction Status Date / Time No Known Allergies Allergy Unverified 05/06/23 07:37 Home Medication Medication Instructions Recorded fluoxetine 20 mg capsule 20 mg PO DAILY 05/27/16 lisinopril 20 mg tablet 20 mg PO DAILY 05/27/16 omeprazole 20 mg tablet,delayed 20 mg PO DAILY 05/27/16 release simvastatin 40 mg tablet 40 mg PO DAILY 05/27/16 cholecalciferol (vitamin D3) 50 50 mcg PO DAILY 01/03/23 mcg (2,000 unit) capsule lactobacillus combination no.9 4 4,000 mmu cells PO DAILY 01/03/23 billion cell capsule (Adult 50 Plus Probiotic) sildenafil 100 mg tablet (Viagra) 100 mg PO DAILY PRN 01/03/23 celecoxib 200 mg capsule 200 mg PO DAILY #60 caps 02/28/23 acetaminophen 500 mg tablet 1,000 mg PO TID PRN 05/05/23 Current Visit Medications: Current Medications Generic Name Dose Route Start Last Admin Trade Name Freq PRN Reason Stop Dose Admin Acetaminophen 1,000 mg 05/06/23 06:00 Acetaminophen 500 Mg Tab PO 05/06/23 16:00 PREOP JEFF Celecoxib 400 mg 05/06/23 06:00 Celecoxib 200 Mg Cap PO 05/06/23 16:00 PREOP JEFF Gabapentin 300 mg 05/06/23 06:00 Gabapentin 300 Mg Cap PO 05/06/23 16:00 PREOP JEFF Tranexamic Acid 1,000 mg/ 60 mls @ 360 mls/hr 05/06/23 06:00 Sodium Chloride IVPB 05/06/23 16:00 PREOP JEFF Ringer's Solution 1,000 mls @ 80 mls/hr 05/06/23 06:00 IV 06/04/23 23:59 INFUSION JEFF Cefazolin Sodium/Dextrose 2 gm in 50 mls @ 100 mls/hr 05/06/23 06:00 Ancef Duplex IVPB 05/06/23 16:00 PREOP JEFF IV Miscellaneous Supplies 1 each 05/06/23 06:00 Iv Access IV 06/04/23 23:59 DIRECTED JEFF Sodium Chloride 0 ml 05/06/23 06:00 Normal Saline Flush 10 Ml Syr IV 06/04/23 23:59 PRN PRN Sodium Chloride 0 ml 05/06/23 06:00 Normal Saline 10 Ml Vial IJ 06/04/23 23:59 DIRECTED PRN Sterile Water 0 ml 05/06/23 06:00 Water,Injection,Sterile 10 Ml Vial IJ 06/04/23 23:59 DIRECTED PRN PFSH Active Problems Active Problems: Problem Status Onset Code 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 History of bilateral hip replacements 01/15/23 Z96.643 Medical History Medical History Depression GERD (gastroesophageal reflux disease) Gout Hypertension Surgical History Surgical History History of reconstruction of anterior cruciate ligament tear Left ~35 years ago Hx of total hip arthroplasty b/l 12/2022 Tobacco Smoking/Tobacco Use Status: Never Alcohol Alcohol Intake: current Alcohol intake frequency: a few times a week Alcohol type: beer Substance Use Substance use: Occasionally Substance use type: marijuana Details: last use 05/03 Vital Signs and Lab Results Vital Signs Most Recent Vital Signs in EMR: Temp Pulse Resp BP Pulse Ox 36.7 C 76 16 150/91 H 97 05/06/23 07:27 05/06/23 07:27 05/06/23 07:27 05/06/23 07:27 05/06/23 07:27 Lab Results Blood Type / Crossmatch: No Data to Display Complete Blood Count: White Blood Count 6.36 10^3/uL (4.4-10.8) 05/01/23 08:55 Red Blood Count 5.17 10^6/uL (4.36-5.78) 05/01/23 08:55 Hemoglobin 15.1 g/dL (13.5-17.5) 05/01/23 08:55 Hematocrit 45.4 % (40.0-50.0) 05/01/23 08:55 Platelet Count 234 10^3/uL (130-400) 05/01/23 08:55 Complete Metabolic Panel: Sodium 140 mmol/L (136-145) 05/01/23 08:55 Potassium 4.2 mmol/L (3.5-5.1) 05/01/23 08:55 Chloride 103 mmol/L (98-107) 05/01/23 08:55 Carbon Dioxide 27.1 mmol/L (21.0-32.0) 05/01/23 08:55 BUN 21 mg/dL (7-18) H 05/01/23 08:55 Creatinine 1.0 mg/dL (0.70-1.30) 05/01/23 08:55 Est GFR (CKD-EPI 2020) 86.16 (mL/min/1.73m2) 05/01/23 08:55 Calcium 9.1 mg/dL (8.5-10.1) 05/01/23 08:55 Glucose 112 mg/dL (74-106) H 05/01/23 08:55 Liver Function Panel: No Data to Display Coagulation Panel: No Data to Display Cardiac Panel: No Data to Display Arterial Blood Gas: No Data to Display Venous Blood Gas: No Data to Display Pancreas Panel: No Data to Display Thyroid Panel: No Data to Display Infectious Disease: No Data to Display Blood Cultures: No Data to Display Toxicology Panel: No Data to Display Imaging and Studies Imaging and Studies Study information below may be from another EMR and interpreted by another provider. Please see original notes in EMR for more complete details. Stress Test Summary: Impressions: Normal study after maximal exercise. Summary: 1. Stress ECG conclusions: The stress ECG is negative. Wise treadmill score: 11. This score predicts a low risk of cardiac events. 2. Impressions: Normal study after maximal exercise. 06/04/16 Anesthesia Assessment and Plan Anesthesia History Personal History: No History of Anesthesia Complications Family History: No Family History of Anesthesia Complications Exercise Tolerance Exercise Tolerance: Metabolic Equivalents>4 Cardiac & Pulmonary Exam Cardiac Exam: Normal S1/S2 Heart Sounds Pulmonary Exam: Clear Bilateral Breath Sounds Implantable Cardiac Device Does patient have a Pacemaker or an ICD?: No Airway Exam Known Difficult Airway: No Mallampati Class: 3 Mouth Opening: Normal (> 3cm) Thyromental Distance: Greater than 3 cm Neck Range of Motion: Full ROM Neck Circumference: Normal Teeth Condition: Normal Dentition ASA Classification ASA Score: ASA 2 Emergency Case?: No NPO Status NPO Status: NPO Clears >2 hours, Solids >8 hours Anesthesia Plan Resuscitation Status: Full Code Anesthesia Technique: General Anesthesia Airway Planned: Natural Airway Monitors Used: Standard Monitors Preoperative Comments:: 62 yo male for TKA. denies health history change since BRANDAN. Sig PMHx: GERD, depression, HTN, never smoker, occ etoh/cannabis. Previous Anes: - bTHA, spinal 1.5 mL heavy bup, prop/dexmed sedation, natural airway.
[2023-05-06] MEDS: Acetaminophen 500 MG TAB 1000 MG PO (07:50)
[2023-05-06] MEDS: Gabapentin 300 MG CAP PO (07:51)
[2023-05-06] MEDS: Celecoxib 200 MG CAP 400 MG PO (07:51)
[2023-05-06] MEDS: Lactated Ringers 1,000 ML 80 ML IV (08:00)
--- NOTE | 2023-05-06 08:31 | W.ANESNERVE ---
Nerve Block Single Injection Procedure Date and Time Date Performed: 05/06/23 Procedure Start: 08:25 Location Where Procedure Performed Procedure Location: Day Surgery Unit Reason Performed: Postoperative Analgesia Requesting Provider: Oseas Larsen Timeout Performed Timeout Performed: Yes Monitoring Used ECG, Blood Pressure and SpO2 Sterility Sterility: Hand Hygiene, Surgical Cap, Surgical Mask, Sterile Gloves and Chlorhexidine Sedation Given During Procedure Sedation Given (Indicate Dose Given): Versed IV Dose:: 2 mg Patient Mental Status Patient Mental Status: Sedate with meaningful communication Nerve Block 1st Nerve Block: Laterality: Left Block Type: Adductor Canal Ultrasound Image Saved?: Yes Needle / Catheter Used: 100mm SonoPlex II Local Anesthetic Bolus (Indicate Dose Given): Lidocaine used for local infiltration of skin, Injected in 3-5ml increments after negative blood aspiration and Bupivacaine 0.375% Dose:: 10 mL Additives (Indicate Dose Given): Precedex Dose:: 40 mcg Ultrasound: Sterile probe cover and gel used Nerve Stimulator: Supplement to Ultrasound use and No twitch or parasthesia noted < 0.5 mA Paresthesia: None Procedure Tolerated: No Complications Procedure Outcome: Successful Performed By: Colt Hsieh
[2023-05-06] MEDS: ceFAZolin 2 GM/50 ML BAG IVPB (08:40)
--- NOTE | 2023-05-06 11:05 | W.ANESPOSTOP ---
Postoperative Evaluation Date, Time and Location Date Performed: 05/06/23 Time Performed: 11:05 Patient Location: PACU Vital Signs Most Recent Imported Vital Signs: Most Recent Vital Signs Temp Pulse Resp BP Pulse Ox 36.3 C L 68 15 132/82 97 05/06/23 10:46 05/06/23 10:55 05/06/23 10:55 05/06/23 10:55 05/06/23 10:55 Pain Score Most Recent Pain Score: Most Recent Pain Score Pain Level 3 05/06/23 10:55 Assessment Mental Status: Awake (Alert & Oriented to Patient Baseline) Airway and Respiratory Function: Patent airway with normal (patient baseline) respiratory exam Cardiovascular Function: Hemodynamically Stable Hydration Status: Adequately Hydrated Nausea & Vomiting: No Nausea or Vomiting Pain: Pain is tolerable per patient (spinal mostly worn off) Peripheral Nerve Block: Patient did not receive a nerve block
[2023-05-06] MEDS: Normal Saline 10 ML VIAL IJ (11:11)
[2023-05-06] MEDS: HYDROmorphone 2 MG/ML SYR IVP ×2 (11:11→11:21)
--- NOTE | 2023-05-06 11:49 | PDOC.DSDIS_ITS ---
Date of service: 05/06/23 Time of Service: 11:49 Discharge Plan Disposition Patient Disposition: Home Condition: Good Discharge Details Attending Provider: Oseas Larsen Primary Care Provider: Asif Parson Home Meds and New Rx's Prescriptions: New aspirin 81 mg tablet,delayed release (DR/EC) 81 mg PO BID Qty: 60 0RF pantoprazole 40 mg tablet,delayed release (DR/EC) 40 mg PO DAILY Qty: 30 0RF dexamethasone 4 mg tablet 4 mg PO DAILY Qty: 2 0RF Rx Instructions: Starting Post-Operative Day #1 (Day after surgery) gabapentin 300 mg capsule 300 mg PO QHS Qty: 14 0RF ondansetron 4 mg tablet,disintegrating 4 mg PO Q8H PRNQty: 15 0RF Continued sildenafil [Viagra] 100 mg tablet 100 mg PO DAILY PRN Rx Instructions: administer 30 minutes to 4 hours before activity Adult 50 Plus Probiotic 4 billion cell capsule 4,000 mmu cells PO DAILY Rx Instructions: administer with a meal cholecalciferol (vitamin D3) 50 mcg (2,000 unit) capsule 50 mcg PO DAILY lisinopril 20 MG tablet 20 mg PO DAILY simvastatin 40 MG tablet 40 mg PO DAILY fluoxetine 20 MG capsule 20 mg PO DAILY omeprazole 20 MG tablet,delayed release (DR/EC) 20 mg PO DAILY celecoxib 200 mg capsule 200 mg PO DAILY Qty: 60 0RF Changed acetaminophen 500 mg tablet 1,000 mg PO TID PRNQty: 90 0RF Discharge Instructions Additional Instructions: Total Knee Discharge Instructions Activity: The most important activity is to walk and to work on gentle motion (both flexion and extension). You should try to take short walks a few times a day. It is important that when resting you work on keeping the knee straight. Avoid putting a pillow behind the knee as this will encourage flexion. Work on range of motion exercises as provided by Physical Therapy. - Start outpatient physical therapy within 2 weeks. - You should wear the FIDEL hose on both legs for 2 weeks. You may remove these at night. You may also use any compression sock in place of the FIDEL hose. - Utilize [employer] to review exercises, see videos on exercises and obtain basic information pertaining to your surgery and your recovery. Dressing: Remove the Ernie wrap by 2 days after your surgery and put on the FIDEL stocking given to you from the hospital. Keep the surgical dressing (underneath the ERNIE wrap) in place for at least one week. After the first week it may be removed and replaced with light gauze and tape or nothing. The wound and dressing may get wet after 3 days but avoid soaking the dressing or otherwise it will need to be changed. Many people prefer covering the dressing with cling wrap (saran wrap) to minimize it from getting soaked. If it gets wet, just pat dry. If it starts to peel off then it will need to be changed. Medications: - You should take Tylenol and anti-inflammatory Celebrex as your primary pain control medications. If the Celebrex is too expensive or not covered, please call the office for another alternative (Advil/Ibuprofen or Naproxen/Aleve) - You have been prescribed a stronger pain medication Oxycodone for breakthrough pain, take as needed as prescribed. YOu have been prescribed Ondansetron to help with nausea and you may take 1/2 tablet too. - You have also been prescribed a stomach acid reduction agent Pantoprozole to help reduce stomach acid and reflux. - You have been prescribed Gabapentin to take at night for restlessness and nerve pain. - You will be taking Aspirin 81mg twice a day for DVT prevention unless instructed otherwise. - You have also been prescribed Decadron to take to control post-operative nausea and pain. You will start this tomorrow. - If you have constipation you should take Colace or Miralax (both [id number]). It takes most people 3-4 days to have a bowel movement. Follow-up: 2 weeks If you have any acute concerns or questions, please do not hesitate to contact the office at [phone]. You may contact Dr. Larsen with any questions after hours through the hospital at [phone] or on his cell phone at [phone]. Stand Alone Forms: Anesthesia Discharge Inst., Alex.Nerve Block Instructions, Alex Kraus (DSU) Referrals: Oseas Larsen MD [ [facility] STAFF PHYSICIAN] - 05/23/23 9:45 am Equipment/Supplies: Walker Activity:: Activity as Tolerated Remove Dressings/Wound Care:: Do Not Remove Shower/Bathe:: Cover Diet:: As Tolerated Discharge Orders Discharge Orders: Discharge Order (Routine); Ordered 05/06/23 Ordered By: Oseas Larsen DS: Diagnosis Discharge Diagnosis (1) Traumatic arthritis of left knee: Status: Acute
--- NOTE | 2023-05-06 15:18 | PT.INIE ---
PT Notes Date: 05/06/2023 Referring: Oseas Larsen MD MD diagnosis: Osteoarthritis left knee status post left TKA PT diagnosis: Osteoarthritis left knee status post left TKA Subjective: Patient planes of intermittent discomfort throughout the left suprapatellar area with ambulation particularly initially. No resting discomfort. History of present illness: A 62-year-old male with osteoarthritis of the hips and right knee, status post bilateral BRANDAN's numerous months ago and a right TKA earlier today. Pain ratin/10 on a VAS Pain location: Suprapatellar region left knee Functional mobility: Independent with assuming the supine to sitting to standing positions. Initially he had some lightheadedness and I had him sit on the edge of the bed until this cleared. Gait: He ambulated approximately 150 feet with a FWW weightbearing as tolerated on left lower extremity. He was able to descend and ascend 4 steps with a double railing with safe, proper technique. Initially required minimal contact guarding, and at the end of the ambulation he was nonsupportive. Home situation: He has 11 steps leading into his home with railings on both sides, and feels confident with climbing these. He can also use one of his crutches with the other hand on the railing if he feels more secure. His bedroom and bathroom is on the first floor, and his bathroom has a combo shower tub with a seat. No grab bars or flexible shower house. Articular: His active left knee motion is -15 to 75 degrees without pain on movement. Strength: He is able to form quad and gluteal sets and ankle pumping. He is able to perform a supine straight leg raise on the left. Neuro: Sensations intact to light touch the digits of his left foot he has full motor control Treatment: [id number] Total treatment time: 45 minutes Assessment: Patient performed ambulation with a walker, stair climbing, and independent with all bed mobility activities. His initial lightheadedness resolved after being upright for 5 minutes. All goals achieved. Plan: Today session consisted of the evaluation, assessment of his bed mobility and gait training with a FWW along with stair climbing. He was also instructed home exercise program consisting of quad and gluteal sets and ankle pumping. Elevate his left lower extremity in his recliner with his leg above heart level when he is not walking. Ice frequently for pain control and swelling. He has his first outpatient PT session in 2 weeks. Disclaimer: This note was created using [employer] voice recognition software. It was reviewed for major content. However, there may be multiple small discrepancies and errors due to the voice recognition aspects of the software.
--- NOTE | 2023-05-06 21:06 | W.PM.OP ---
Date of service: 05/06/23 Time of Service: 10:20 Operative Note Operative Note DATE OF PROCEDURE: 05/06/23 PRE-OP DIAGNOSIS: Left Knee Post-Traumatic Osteoarthritis POST-OP DIAGNOSIS: same PROCEDURE: Left Total Knee Replacement with Intraoperative Navigation SURGEON: Oseas Larsen HOGSHEAD COOPER: Graciela Hudson ANESTHESIA TYPE: Spinal Refer to Anesthesia Record ESTIMATED BLOOD LOSS: 200 PATHOLOGY: none sent TOURNIQUET TIME: 0 COMPLICATIONS: None Patient was transported to: PACU Patient's condition: stable Implants: 1. Depuy Attune Cementless Cruciate Retaining Femoral Component, Size 8 2. Depuy Attune Cementless Fixed Bearing Tibial Component, Size 8 3. Depuy Attune 8x8 CR/FB Medial Lipped Poly 4. Depuy Attune Patellar Component, Size 38 Indications: I have seen Peter in clinic for symptoms of LEFT knee arthritis, confirmed with radiographic findings. He has exhausted nonoperative methods and was having significant limitations in daily function and desired better function and less pain. I discussed the technical details of a knee replacement. I explained the risks of the procedure to include, but not limited to, bleeding, infection, pain, stiffness, fracture, damage to nerves and vessels, damage to muscles and tendons, loosening, need for repeat procedure, blood clot and cardiopulmonary demise. Despite these risks, Peter elected to proceed. Findings: There was significant signs of arthritis throughout the knee. Procedure Description: Peter was greeted in the preoperative holding area where the correct side was identified and marked. The consent was reviewed with the patient and signed. The history and physical was updated. All questions were answered. Preoperative mediacations were administered: Acetaminophen 1000mg, Celebrex 400mg, and Gabapentin 300mg. An adductor canal block was then administered by the anesthesia team in the PACU. Peter was taken back to the operating room. A spinal anesthestic was then administered. The patient was placed into the supine position on the operating room table. A nonsterile tourniquet was placed high onto the leg. Posts were placed for positioning during the procedure. All bony prominences were well padded. Prophylactic antibiotics in the form of Cefazolin were administered. 1g of Tranxemic Acid was given intravenously within 30 minutes of incision. The left leg was then prepped with Chloraprep and draped in a standard fashion with impervious stockinette. A second prep with Chloraprep was performed prior to application of Iodine impregnated skin protection. A timeout to confirm correct identity, side and site, procedure, allergies, anesthesia, and medical concerns was performed. With the knee in some flexion, a midline incision was made overlying the knee. Full thickness skin flaps were raised once the extensor mechanism was encountered. These were raised medially and laterally. Any bleeding was controlled with electrocautery. Once the extensor mechanism was fully exposed, a medial parapatellar arthrotomy was performed in a flexed position. All bleeding from the arthrotomy and the geniculate arteries was coagulated. A medial subperiosteal peel was performed with electrocautery to the midcoronal plane. The fat pad was removed while keeping the patellar tendon protected. The anterior distal femur synovium was removed for later visualization. The ACL and PCL were resected and the anterior horn of the lateral meniscus was transected. The knee was then flexed with the patella everted. Large osteophytes from the tibia were removed. Large osteophytes from the femur were removed. A single starting pin was then placed 1cm anterior to the PCL insertion and the notch in the direction of the femoral head. The OrthoAlign device was applied over the pin. It was oriented to be in line with the epicondylar axis and the trochlear groove. It was then pinned into place. The navigation computer was then turned on and calibrated. The distal femur cut was set at 0 degrees varus/valgus and 3 degrees flexion. The distal femur cutting guide then was positioned for a 9mm cut. The distal femur was cut with an oscillating saw while protecting the soft tissues. The tibia was then addressed. The OrthoAlign device was placed over the tibial tubercle and medial tibia and secured into position. Once again, OrthoAlign was calibrated and then set for a 1.5 degrees varus cut and 5 degrees of posterior slope. With this locked into position, the cut thickness stylus was used to assess cut thickness. The medial side, most involved side, was set for a 4mm cut. This was then held in position and pinned into place with 2 additional pins and a cross pin for stability. The medial and lateral collateral ligaments were protected and the cut was performed. With this completed, it was assessed and noted to be of appropriate dimensions. The guide and OrthoAlign was removed. A spacer block was inserted and the knee was brought into extension to ensure enough space was present. The femur was then sized as a size 8. The Orthoalign gap balancing device was then placed in extension. This was used to ensure that the ligaments were properly balanced with up to 2 to 3 mm laxity laterally compared medially. The extension gap was measured as 21mm. The knee was then brought into 90 degrees of flexion and the ligament [employer] school learning support teacher was once again placed. Under the same amount of force the flexion gap was measured. The attending specific jig was placed and the flexion gap was made to match the extension gap. The 4-in-1 cutting guide was the placed. An jarocho wing was used to confirm appropriate position of the anterior cut to avoid notching. This cutting guide was ensured to be flush on the cut surface and then pinned into place with headed pins. While protecting the soft tissues, quad tendon, and collateral ligaments, the anterior and posterior cuts were performed with a saw. The central two pins were removed and the posterior and anterior chamfers were cut next. The notch-cutting guide was placed. This was pinned to lateralize the femoral component as much as possible while keeping it flush on the cut surface. This was then pinned into position. A saw was used to make the notch cut. A rasp smoothed the cut surfaces. The medial and lateral menisci were removed. A trial femoral component was then inserted, impacted down to the cut surfaces, and the lug holes were drilled. A provisional trial tibial component was placed and the knee was brought through range of motion. The polyethylene was trialed until there was good flexion and extension with excellent stability to the medial and lateral collaterals. The patella was tracking without thumbs. A size 8mm polyethylene component provided the best range of motion and stability with less than 2mm gapping with medial and lateral stress and full extension without significant hyperextension. The tibial cut surface was fully exposed. The tibia was then sized as a 8. The tibia had been previously marked during trialing to correspond to the center of the tibial component to help with rotation. The trial was aligned to this pio, approximately rotated to the medial 1/3rd of the tibial tubercle. The trial was pinned into place. The tibia was prepared with a reamer and a keel punch and lug holes. The knee was then brought into extension and the patella was measured as 31mm. Using the patellar clamp and cut guide, this was resected to a flat surface with at least 13mm of thickness remaining. The size 38 patella fit the best. This was oriented and then clamped into position. The lugs were drilled. The trial components were removed. The final components were opened on the back table. The periosteal and capsular tissues, especially posteriorly, around the knee were then systematically injected with a periarticular cocktail consisting of 246mg of Ropivacaine, 0.5mg of Epinephrine, 0.08mg of Clonidine, and 30mg of Ketorolac, diluted to 100cc. On the back table, with the implants opened, the cement was mixed. One batch of high viscosity cement was prepared with vacuum assistance. After the cement was ready a small amount was placed on the cut surface of the patella and the patellar button was clamped into position and held. While the cement was hardening, the cementless knee components were placed. Starting with the tibial component, the tibia was subluxed anteriorly and the lug holes of the component were lined up. The tibia was then impacted with an impactor and mallet until the tibial component was in contact with the tibia. Then, the femoral component was inserted. The lug holes were aligned and the component was impacted into position. The final polyethylene component was inserted. The knee was irrigated with Surgiphor Betadine solution. This was allowed to sit in the knee for 3 minutes and then it was thoroughly irrigated out with saline. After the cement had finally cured, approximately 15min, the clamp was removed from the patella and the knee was taken through range of motion. The patella was tracking with a no-thumbs technique. The capsule was then reapproximated with a No. 1 Vicryl at multiple locations. The capsule was finally closed with a No. 2 Stratafix, barbed suture. Deep tissues were then reapproximated with 0 Vicryl and 2-0 Vicryl. The skin was closed with a running 3-0 Monocryl in a subcuticular fashion. This was reinforced with skin glue. A Mepilex silver dressing was applied along with a [id number] ROMINA wrap. A CryoCuff was applied. Peter was transferred to the hospital bed without difficulty an suffering no apparent complication. Peter has a good prognosis. Physical therapy will start today and without restrictions, weight-bearing as tolerated. Aspirin 81mg BID will be used for DVT prophylaxis.
== END 2023-05-06 14:00 | disposition home or self-care (01) ==
LOC: SUR 07:16
PROVIDERS: PCP Internal Medicine; Visit Provider Student in an Organized Health Care Education/Training Program
PROC: (CPT 27447; principal; 2023-05-06 09:15)
DX: M17.32 Unilateral post-traumatic osteoarthritis, left knee (principal); Z96.643 Presence of artificial hip joint, bilateral; I10 Essential (primary) hypertension; K21.9 Gastro-esophageal reflux disease without esophagitis
CPT/HCPCS: 27447; 20985; 76942; 97162; J0690; J1100; J1170; J2250; J2405; J2704

== ENCOUNTER 2023-05-23 09:51 | Outpatient (CLI) | payer OTHER, SELFPAY ==
--- NOTE | 2023-05-23 11:18 | DI.RAD_ITS ---
Exam(s) XR KNEE LT 1V XR STANDING ALIGNMENT EXAM: XR STANDING ALIGNMENT and XR knee LT 1 V CLINICAL HISTORY: 1ST POST OP L TKA. TECHNIQUE: 2D digital imaging was performed. Five images were obtained. COMPARISON: CR XR KNEE LT 1V from 04/11/2023 CR XR STANDING ALIGNMENT from 04/11/2023 FINDINGS: BONES: Patient has bilateral total hip replacements. The patient is now status post left total knee replacement. The orthopedic hardware appears in good position. No lucencies are seen in or about th e orthopedic hardware to suggest loosening or infection. Degenerative changes are seen in the right knee with joint space narrowing and osteophytes. There is an osseous density again seen at the media l aspect of the right knee joint. This is stable. The ankles are well maintained.There is no signif icant leg length discrepancy. SOFT TISSUE: Normal. IMPRESSION: Stable left total knee replacement. DATA REPOSITORY: RADIATION DOSE DELIVERED:
== END 2023-05-23 09:52 | disposition home or self-care (01) ==
LOC: DIORS 09:51
PROVIDERS: PCP Internal Medicine; Visit Provider Student in an Organized Health Care Education/Training Program
DX: Z96.652 Presence of left artificial knee joint (principal); Z96.643 Presence of artificial hip joint, bilateral; Z47.1 Aftercare following joint replacement surgery
CPT/HCPCS: 73560; 77073

== ENCOUNTER 2023-06-25 10:44 | Day surgery (SDC) | payer OTHER, SELFPAY ==
[2023-06-25] VITALS (8 sets, daily range): BP systolic 143–166; BP diastolic 83–101; PULSE 68–89; RESP 14–19; TEMP 36.3–36.9; O2SAT 97–100; BMI 30.7
--- NOTE | 2023-06-25 11:26 | W.PM.DSUDISC ---
Date of service: 06/25/23 Time of Service: 11:26 Discharge Plan Disposition Patient Disposition: Home Condition: Good Discharge Details Reason For Visit: Manipulation L Knee Attending Provider: Oseas Larsen Primary Care Provider: Asif Parson [place] Meds and New Rx's Prescriptions: New oxycodone 5 mg tablet 5 mg PO Q8H MDD 15mg PRN (Reason: pain) Qty: 6 0RF Continued sildenafil [Viagra] 100 mg tablet 100 mg PO DAILY PRN Rx Instructions: administer 30 minutes to 4 hours before activity Adult 50 Plus Probiotic 4 billion cell capsule 4,000 mmu cells PO DAILY Rx Instructions: administer with a meal cholecalciferol (vitamin D3) 50 mcg (2,000 unit) capsule 50 mcg PO DAILY celecoxib [Celebrex] 200 mg capsule 200 mg PO BID Qty: 60 0RF Rx Instructions: take 1 tablet by mouth twice daily lisinopril 20 MG tablet 20 mg PO DAILY simvastatin 40 MG tablet 40 mg PO DAILY fluoxetine 20 MG capsule 20 mg PO DAILY omeprazole 20 MG tablet,delayed release (DR/EC) 20 mg PO DAILY acetaminophen 500 mg tablet 1,000 mg PO TID PRNQty: 90 0RF Discharge Instructions Additional Instructions: Knee Manipulation Discharge Instructions Activity: You should begin moving as soon as possible. You may work on flexion but also equally maintain extension. You may bear weight as tolerated, using crutches only for support/comfort. You should apply ice to help with swelling and elevate when possible (especially in the first few days). Medications: - Rarely does this require any stronger pain medications. - Recommend to take up to 1000mg of Acetaminophen (Tylenol) and 600mg of Ibuprofen (Advil) every 8 hours as needed. These larger strength tablets were called in but you also may use [id number]. Follow-up: 7-10 days Referrals: Oseas Larsen MD [ [facility] STAFF PHYSICIAN] - Equipment/Supplies: Partial Weight Bearing Crutches Activity:: Activity as Tolerated Diet:: As Tolerated Discharge Orders Discharge Orders: Discharge Order (Routine); Ordered 06/25/23 Ordered By: Carlos Spencer DS: Diagnosis Discharge Diagnosis (1) Arthrofibrosis of total knee replacement: Status: Acute (2) History of total left knee replacement: Status: Acute
[2023-06-25] MEDS: Lactated Ringers 1,000 ML 80 ML IV (11:28)
--- NOTE | 2023-06-25 11:47 | W.ANESPRE ---
General Info Date of Service Date Performed: 06/25/23 Height: 5 ft 9 in Weight: 94.3 kg Body Mass Index (BMI): 30.7 Surgical Procedure: Operation Date: 06/25/23 14:25 Proposed Procedure Side Surgeon p Knee Manipulation of Knee Left Oseas Larsen MD Actual Procedure Side Surgeon p Knee Manipulation of Knee Left Oseas Larsen MD Meds Allergies and Home Medications Allergies Allergy/AdvReac Type Severity Reaction Status Date / Time No Known Allergies Allergy Verified 06/25/23 11:05 Home Medication Medication Instructions Recorded fluoxetine 20 mg capsule 20 mg PO DAILY 05/27/16 lisinopril 20 mg tablet 20 mg PO DAILY 05/27/16 omeprazole 20 mg tablet,delayed 20 mg PO DAILY 05/27/16 release simvastatin 40 mg tablet 40 mg PO DAILY 05/27/16 cholecalciferol (vitamin D3) 50 50 mcg PO DAILY 01/03/23 mcg (2,000 unit) capsule lactobacillus combination no.9 4 4,000 mmu cells PO DAILY 01/03/23 billion cell capsule (Adult 50 Plus Probiotic) sildenafil 100 mg tablet (Viagra) 100 mg PO DAILY PRN 01/03/23 acetaminophen 500 mg tablet 1,000 mg PO TID PRN #90 tabs 05/06/23 celecoxib 200 mg capsule (Celebrex) 200 mg PO BID #60 caps 06/06/23 oxycodone 5 mg tablet 5 mg PO Q8H PRN pain #6 tabs 06/25/23 Current Visit Medications: Current Medications Generic Name Dose Route Start Last Admin Trade Name Freq PRN Reason Stop Dose Admin Acetaminophen 650 mg 06/25/23 11:22 Acetaminophen 325 Mg Tab PO 07/25/23 11:21 Q4H PRN PRN Ringer's Solution 1,000 mls @ 80 mls/hr 06/25/23 06:00 06/25/23 11:28 IV 07/25/23 23:59 80 mls/hr INFUSION JEFF Administration IV Miscellaneous Supplies 1 each 06/25/23 06:00 Iv Access IV 07/25/23 23:59 DIRECTED JEFF Oxycodone/Acetaminophen 1 tab 06/25/23 11:22 Oxycodone 5 Mg/Acetaminophen 325 Mg Tab PO 07/25/23 11:21 Q4H PRN PRN Pain Sodium Chloride 0 ml 06/25/23 06:00 Normal Saline Flush 10 Ml Syr IV 07/25/23 23:59 PRN PRN Sodium Chloride 0 ml 06/25/23 06:00 Normal Saline 10 Ml Vial IJ 07/25/23 23:59 DIRECTED PRN Sterile Water 0 ml 06/25/23 06:00 Water,Injection,Sterile 10 Ml Vial IJ 07/25/23 23:59 DIRECTED PRN PFSH Active Problems Active Problems: Problem Status Onset Code Arthrofibrosis of total knee replacement T84.82XA History of total left knee replacement 05/06/23 Z96.652 History of bilateral hip replacements 01/15/23 Z96.643 Medical History Medical History Depression GERD (gastroesophageal reflux disease) Gout Hypertension Surgical History Surgical History (Updated 06/25/23 @ 11:26 by TAVO Summers) History of reconstruction of anterior cruciate ligament tear Left ~35 years ago Hx of total hip arthroplasty b/l 12/2022 Tobacco Smoking/Tobacco Use Status: Former Tobacco Use Alcohol Alcohol Intake: current Alcohol intake frequency: a few times a week Alcohol type: beer Substance Use Substance use: Occasionally Substance use type: marijuana Details: last time 06/22 Vital Signs and Lab Results Vital Signs Most Recent Vital Signs in EMR: Most Recent Vital Signs Temp Pulse Resp BP Pulse Ox 36.3 C L 71 17 160/101 H 99 06/25/23 11:01 06/25/23 11:01 06/25/23 11:01 06/25/23 11:01 06/25/23 11:01 Lab Results Blood Type / Crossmatch: No Data to Display Complete Blood Count: No Data to Display Complete Metabolic Panel: No Data to Display Liver Function Panel: No Data to Display Coagulation Panel: No Data to Display Cardiac Panel: No Data to Display Arterial Blood Gas: No Data to Display Venous Blood Gas: No Data to Display Pancreas Panel: No Data to Display Thyroid Panel: No Data to Display Infectious Disease: No Data to Display Blood Cultures: No Data to Display Toxicology Panel: No Data to Display Imaging and Studies Imaging and Studies Study information below may be from another EMR and interpreted by another provider. Please see original notes in EMR for more complete details. Stress Test Summary: Impressions: Normal study after maximal exercise. Summary: 1. Stress ECG conclusions: The stress ECG is negative. Wise treadmill score: 11. This score predicts a low risk of cardiac events. 2. Impressions: Normal study after maximal exercise. 06/04/16 Anesthesia Assessment and Plan Anesthesia History Personal History: No History of Anesthesia Complications Family History: No Family History of Anesthesia Complications Exercise Tolerance Exercise Tolerance: Metabolic Equivalents>4 Cardiac & Pulmonary Exam Cardiac Exam: Normal S1/S2 Heart Sounds Pulmonary Exam: Clear Bilateral Breath Sounds Implantable Cardiac Device Does patient have a Pacemaker or an ICD?: No Airway Exam Known Difficult Airway: No Mallampati Class: 3 Mouth Opening: Normal (> 3cm) Thyromental Distance: Greater than 3 cm Neck Range of Motion: Full ROM Neck Circumference: Normal Teeth Condition: Normal Dentition ASA Classification ASA Score: ASA 2 Emergency Case?: No NPO Status NPO Status: NPO Clears >2 hours, Solids >8 hours Anesthesia Plan Resuscitation Status: Full Code Anesthesia Technique: General Anesthesia Airway Planned: LMA Monitors Used: Standard Monitors
[2023-06-25] MEDS: Bupivacaine 0.25% Pres-Free 30 ML VIAL (12:01)
--- NOTE | 2023-06-25 12:19 | ROE_ITS ---
Date of service: 06/25/23 Time of Service: 12:05 Operative Note Operative Note DATE OF PROCEDURE: 06/25/23 PRE-OP DIAGNOSIS: Left Knee Arthrofibrosis POST-OP DIAGNOSIS: same PROCEDURE: Left Knee Manipulation Under Anesthesia SURGEON: Oseas Larsen ANESTHESIA TYPE: General LMA/ETT Refer to Anesthesia Record ESTIMATED BLOOD LOSS: 0 PATHOLOGY: none sent TOURNIQUET TIME: 0 COMPLICATIONS: None Patient was transported to: PACU Patient's condition: stable Indications: Peter is a 62 year old male who is s/p knee replacement. Despite diligent work with physical therapy there has been continued stiffness. To assist with mobility, I offered a manipulation under anesthesia. I discussed the risks of the procedure to include bleeding, pain, recurrent stiffness, fracture. Despite these risks, he elects to proceed. Findings: Preoperative flexion = 90 Postoperative flexion = 120 Preoperative extension = 0 Postoperative extension = 0 Procedure Description: The patient was greeted in the preoperative holding area. Identity was confirmed and the correct side was identified and marked. The consent was reviewed the patient and signed. History and physical was updated. Peter was taken back to the operating room. The left side was identified as the correct side. A timeout was performed for safe surgery. A general anesthetic was administered. The knee was then prepped with ChloraPrep and an intra-articular injection of 10 cc of 0.25% bupivacaine was administered. Once a muscle relaxant was fully on board manipulation was performed. Pre- manipulation range of motion was noted. A gentle manipulation was performed first into flexion using a very small lever arm and adding gentle and progressive pressure to the tibia. There is audible and palpable crepitus with improvement in range of motion. This was cycled and repeated multiple times. The leg was then brought into extension and gentle anterior posterior pressure was applied with a supported hand behind the proximal tibia and knee. This was brought back into flexion was once again manipulated with gentle and progressive pressure. Final range of motion numbers were recorded. A Band-Aid was applied to the injection site. He was awakened from anesthesia and taken to the PACU in stable condition.
[2023-06-25] MEDS: fentaNYL 100 MCG/2 ML VIAL IVP ×2 (12:24→12:35)
--- NOTE | 2023-06-25 15:29 | W.ANESPOSTOP ---
Postoperative Evaluation Date, Time and Location Date Performed: 06/25/23 Time Performed: 13:22 Patient Location: Day Surgery Unit Vital Signs Most Recent Imported Vital Signs: Most Recent Vital Signs Temp Pulse Resp BP Pulse Ox 36.6 C 68 18 160/93 H 100 06/25/23 13:20 06/25/23 13:20 06/25/23 13:20 06/25/23 13:20 06/25/23 13:20 Pain Score Most Recent Pain Score: Most Recent Pain Score Pain Level 2 06/25/23 13:20 Assessment Mental Status: Awake (Alert & Oriented to Patient Baseline) Airway and Respiratory Function: Patent airway with normal (patient baseline) respiratory exam Cardiovascular Function: Hemodynamically Stable Hydration Status: Adequately Hydrated Nausea & Vomiting: No Nausea or Vomiting Pain: Pain is tolerable per patient Peripheral Nerve Block: Patient did not receive a nerve block
== END 2023-06-25 13:30 | disposition home or self-care (01) ==
PROVIDERS: PCP Internal Medicine; Visit Provider Student in an Organized Health Care Education/Training Program
PROC: (CPT 27570; principal; 2023-06-25 14:15)
DX: T84.82XA Fibrosis due to internal orthopedic prosthetic devices, implants and grafts, initial encounter (principal); Z96.652 Presence of left artificial knee joint
CPT/HCPCS: 27570; J1885; J2001; J2405; J2704; J3010

== ENCOUNTER 2024-01-16 11:08 | Outpatient (CLI) | payer OTHER, SELFPAY ==
--- NOTE | 2024-01-16 10:30 | DI.RAD_ITS ---
Exam(s) XR HIP LT AP LAT ONLY EXAM: XR HIP LT AP LAT ONLY CLINICAL HISTORY: annual f/u L BRANDAN. TECHNIQUE: 2D digital imaging was performed. Two images were obtained. AP and lateral views were ob tained. COMPARISON: CR XR STANDING ALIGNMENT from 05/23/2023 FINDINGS: BONES: There are stable post operative changes of a left total hip replacement present. No fracture or dislocation. JOINTS: The orthopedic hardware is in good position. No evidence of hardware loosening. SOFT TISSUE: Normal. IMPRESSION: Stable left total hip replacement. DATA REPOSITORY: RADIATION DOSE DELIVERED:
--- NOTE | 2024-01-16 10:34 | DI.RAD_ITS ---
Exam(s) XR HIP RT AP LAT ONLY EXAM: XR HIP RT AP LAT ONLY CLINICAL HISTORY: ANNUAL F/U R BRANDAN. TECHNIQUE: 2D digital imaging was performed. Two images were obtained. AP and lateral views were ob tained. COMPARISON: CR XR STANDING ALIGNMENT from 05/23/2023 FINDINGS: BONES: There are stable post operative changes of a right total hip replacement present. No fracture or dislocation. JOINTS: The orthopedic hardware is in good position. No evidence of hardware loosening. SOFT TISSUE: Normal. IMPRESSION: Stable right total hip replacement. DATA REPOSITORY: RADIATION DOSE DELIVERED:
--- NOTE | 2024-01-16 10:36 | DI.RAD_ITS ---
Exam(s) XR KNEE LT 2V AP,LAT EXAM: XR KNEE LT 2V AP,LAT CLINICAL HISTORY: ANNUAL F/U L TKA. TECHNIQUE: 2D digital imaging was performed. Two images were obtained. AP and lateral views were ob tained. COMPARISON: CR XR STANDING ALIGNMENT from 05/23/2023 CR XR KNEE LT 1V from 05/23/2023 CR XR HIP LT AP LAT ONLY from 01/16/2024 FINDINGS: BONES: There are stable post operative changes of a left total knee replacement present. No fracture or dislocation. JOINTS: The orthopedic hardware is in good position. No evidence of hardware loosening. SOFT TISSUE: Normal. IMPRESSION: Stable left total knee replacement. DATA REPOSITORY: RADIATION DOSE DELIVERED:
== END 2024-01-16 11:09 | disposition home or self-care (01) ==
LOC: DIORS 11:08
PROVIDERS: PCP Internal Medicine; Referring Provider Internal Medicine; Visit Provider Physician Assistant
DX: Z96.643 Presence of artificial hip joint, bilateral (principal); Z96.652 Presence of left artificial knee joint; Z47.1 Aftercare following joint replacement surgery
CPT/HCPCS: 73502; 73560